=== PATIENT | female | born 1975 | race African-American/Black ===

== ENCOUNTER 2018-05-31 08:25 | Emergency (ER) | payer SELFPAY ==
--- NOTE | 2018-05-31 09:13 | ER Document Report ---
ED General - General Mode of Arrival: Ambulatory Information source: Patient TRAVEL OUTSIDE OF THE [place] IN LAST 30 DAYS: No <BENNETT MACDONALD - Last Filed: 05/31/18 09:31> <DONALD LINDER - Last Filed: 05/31/18 12:06> - General Chief Complaint: Flank Pain Stated Complaint: ABDOMINAL PAIN Time Seen by Provider: 05/31/18 09:05 Notes: Patient is a 43 year old female with chronic anemia presents to the emergency department complaining of right lower quadrant abdominal pain and right flank pain onset 2 days ago. Patient also complains of red tinged urine, urinary retention further describing it as "unable to fully empty my bladder", and urinary burning. Patient states she would often pace back and forth due to the pain being so severe. She states she has taken Aleve around 0730 this morning with no relief. Patient denies any vaginal discharge. Patient states she has chronic anemia due to having heavy periods and had a iron transfusion approximately 6 months ago. She states she last had her hemoglobin checked in December. (BENNETT MACDONALD) - Related Data Allergies/Adverse Reactions: No Known Allergies Allergy (Verified 05/31/18 08:26) Past Medical History - General Information source: Patient - Social History Smoking Status: Never Smoker Cigarette use (# per day): No Chew tobacco use (# tins/day): No Smoking Education Provided: No Family History: Reviewed & Not Pertinent Patient has suicidal ideation: No Patient has homicidal ideation: No Past Surgical History: Reports: Hx Tubal Ligation <BENNETT MACDONALD - Last Filed: 05/31/18 09:31> Review of Systems - Review of Systems Constitutional: No symptoms reported EENT: No symptoms reported Cardiovascular: No symptoms reported Respiratory: No symptoms reported Gastrointestinal: See HPI, Abdominal pain Genitourinary: See HPI, Flank pain, Hematuria, Retention Female Genitourinary: No symptoms reported Musculoskeletal: No symptoms reported Skin: No symptoms reported Hematologic/Lymphatic: No symptoms reported Neurological/Psychological: No symptoms reported -: Yes All other systems reviewed and negative <BENNETT MACDONALD - Last Filed: 05/31/18 09:31> Physical Exam <BENNETT MACDONALD - Last Filed: 05/31/18 09:31> <DONALD LINDER - Last Filed: 05/31/18 12:06> - Vital signs Vitals: Temp Pulse Resp BP Pulse Ox 98.9 F 73 16 142/86 H 100 05/31/18 08:31 05/31/18 08:31 05/31/18 08:31 05/31/18 08:31 05/31/18 08:31 - Notes Notes: GENERAL: Alert, interacts well. No acute distress. HEAD: Normocephalic, atraumatic. EYES: Pupils equal, round, and reactive to light. Extraocular movements intact. ENT: Oral mucosa moist, tongue midline. NECK: Full range of motion. Supple. Trachea midline. LUNGS: Clear to auscultation bilaterally, no wheezes, rales, or rhonchi. No respiratory distress. HEART: Regular rate and rhythm. No murmurs, gallops, or rubs. ABDOMEN: Soft, RLQ tenderness to palpation. Non-distended. Bowel sounds present in all 4 quadrants. EXTREMITIES: Moves all 4 extremities spontaneously. NEUROLOGICAL: Alert and oriented x3. Normal speech. PSYCH: Normal affect, normal mood. SKIN: Warm, dry, normal turgor. No rashes or lesions noted. BACK: Right CVA tenderness to percussion. (BENNETT MACDONALD) Course - Laboratory Result Diagrams: 05/31/18 09:25 05/31/18 09:25 <DONALD LINDER - Last Filed: 05/31/18 12:06> - Vital Signs Vital signs: Temp Pulse Resp BP Pulse Ox 98.9 F 73 16 142/86 H 100 05/31/18 08:31 05/31/18 08:31 05/31/18 08:31 05/31/18 08:31 05/31/18 08:31 - Laboratory Laboratory results interpreted by me: 05/31/18 05/31/18 09:25 09:25 Hgb 10.8 L Hct 33.2 L MCV 74 L MCH 24.1 L RDW 16.2 H Urine Protein 30 H Urine Urobilinogen 2.0 H Ur Leukocyte Esterase LARGE H Urine Ascorbic Acid 40 H Discharge <BENNETT MACDONALD - Last Filed: 05/31/18 09:31> <DONALD LINDER - Last Filed: 05/31/18 12:06> - Discharge Clinical Impression: Pyelonephritis Fibroid uterus Qualifiers: Uterine leiomyoma location: unspecified location Qualified Code(s): D25.9 - Leiomyoma of uterus, unspecified Condition: Stable Disposition: HOME, SELF-CARE Additional Instructions: Pyelonephritis Your evaluation shows evidence of pyelonephritis. This is an infection in the kidney. Typical symptoms are fever, pain in the flank, pain on urination, and frequent urination. Many cases of pyelonephritis can be treated at home. Hospital care may be necessary for patients who are very ill, or elderly or . Pyelonephritis is treated with antibiotics. Be sure to take all the medication as prescribed. Drink plenty of liquids (about three quarts per day) . You may take acetaminophen for fever. You should feel significantly improved within two days. You should have a recheck of your urine in about one week to insure that the infection is gone. Return for a re-examination if your symptoms worsen in any way -- such as high fever, shaking chills, severe weakness or dizziness, severe pain, or inability to pass your urine. Start the antibiotics as prescribed with your first dose this evening. Take Tylenol and ibuprofen or Aleve for pain. Drink plenty of fluids. Take a stool softener for a few days to prevent constipation. Follow-up with your primary care provider when you return home for recheck this week. RETURN TO THE EMERGENCY ROOM IF ANY NEW OR WORSENING SYMPTOMS. Prescriptions: Ciprofloxacin HCl [Cipro 500 mg Tablet] 500 mg PO BID #14 tablet Scribe Attestation: 05/31/18 10:23 I personally performed the services described in the documentation, reviewed and edited the documentation which was dictated to the scribe in my presence, and it accurately records my words and actions. (DONALD LINDER) Scribe Documentation - Scribe Written by Alonso:: Alonso Lipscomb, 05/31/2018 09:21 acting as scribe for :: Gilberto <BENNETT MACDONALD - Last Filed: 05/31/18 09:31>
[2018-05-31 09:51] LABS: ABSOLUTE EOSINOPHILS # (AUTO) 0.1 10^3/uL (0.0-0.6); ABSOLUTE LYMPHOCYTES (AUTO) 1.4 10^3/uL (0.5-4.7); ABSOLUTE MONOCYTES (AUTO) 0.4 10^3/uL (0.1-1.4); ABSOLUTE NEUT (AUTO) 3.7 10^3/uL (1.7-8.2); BASOPHILS % (AUTO) 0.3 % (0-2); EOSINOPHILS % (AUTO) 1.1 % (0-6); HEMATOCRIT 33.2 % (36.0-47.0); HEMOGLOBIN 10.8 g/dL (12.0-15.5); LYMPHOCYTES % (AUTO) 24.8 % (13-45); MEAN CORPUSCULAR HEMOGLOBIN 24.1 pg (27.0-33.4); MEAN CORPUSCULAR HGB CONC 32.5 g/dL (32.0-36.0); MEAN CORPUSCULAR VOLUME 74 fl (80-97); MONOCYTES % (AUTO) 6.5 % (3-13); PLATELET COUNT 440 10^3/uL (150-450); RED BLOOD COUNT 4.47 10^6/uL (3.72-5.28); RED CELL DISTRIBUTION WIDTH 16.2 % (11.5-14.0); SEGMENTED NEUTROPHILS % (AUTO) 67.3 % (42-78); TOTAL CELLS COUNTED % (AUTO) 100 %; WHITE BLOOD COUNT 5.6 10^3/uL (4.0-10.5)
[2018-05-31 10:07] LABS: ALANINE AMINOTRANSFERASE 15 U/L (9-52); ALBUMIN 4.2 g/dL (3.5-5.0); ALKALINE PHOSPHATASE 54 U/L (38-126); ANION GAP 11 (5-19); ASPARTATE AMINO TRANSFERASE 18 U/L (14-36); BILIRUBIN,DIRECT 0.2 mg/dL (0.0-0.4); BILIRUBIN,TOTAL 0.6 mg/dL (0.2-1.3); BLOOD UREA NITROGEN 12 mg/dL (7-20); CALCIUM 9.4 mg/dL (8.4-10.2); CARBON DIOXIDE 27 mmol/L (22-30); CHLORIDE 105 mmol/L (98-107); GLUCOSE 90 mg/dL (75-110); POTASSIUM 4.6 mmol/L (3.6-5.0); SODIUM 142.7 mmol/L (137-145)
[2018-05-31 10:08] LABS: APPEARANCE,URINE CLOUDY; BILIRUBIN,URINE NEGATIVE (NEGATIVE); COLOR,URINE YELLOW; GLUCOSE, URINE NEGATIVE (NEGATIVE); KETONES,URINE NEGATIVE (NEGATIVE); LEUKOCYTE ESTERASE,URINE LARGE (NEGATIVE); NITRITE,URINE NEGATIVE (NEGATIVE); PROTEIN,URINE 30 mg/dL (NEGATIVE); URINE SPECIFIC GRAVITY 1.032
[2018-05-31] MEDS ORDERED: KETOROLAC TROMETHAMINE 60 MG/2 ML SDV IM ONE (10:41)
--- NOTE | 2018-05-31 11:16 | RADIOLOGY REPORT (SQ) ---
EXAM DESCRIPTION: CT LTD RENAL STONE PROTOCOL ON COMPLETED DATE/TIME: 05/31/2018 10:55 am REASON FOR STUDY: Right flank pain, hematuria, UTI COMPARISON: None. TECHNIQUE: CT scan of the abdomen and pelvis performed without intravenous or oral contrast. Images reviewed with lung, soft tissue, and bone windows. Reconstructed coronal and sagittal MPR images revi ewed. All images stored on PACS. All CT scanners at this facility use dose modulation, iterative reconstruction, and/or weight based d osing when appropriate to reduce radiation dose to as low as reasonably achievable (ALARA). [facility]: Dose Right [facility]: CareDose [facility]: Dose Right [facility]: Teradose 4D [facility]: [employer] RADIATION DOSE: CT Rad equipment meets quality standard of care and radiation dose reduction techniq ues were employed. CTDIvol: 11.1 mGy. DLP: 608 mGy-cm.mGy. LIMITATIONS: None. FINDINGS: LOWER CHEST: No significant findings. No nodules or infiltrates. NON-CONTRASTED LIVER, SPLEEN, ADRENALS: Evaluation limited by lack of IV contrast. No identified sign ificant masses. PANCREAS: No masses. No peripancreatic inflammatory changes. GALLBLADDER: No identified stones by CT criteria. No inflammatory changes to suggest cholecystitis. RIGHT KIDNEY AND URETER: No solid masses. No significant calcification. No hydronephrosis or hydroure ter. LEFT KIDNEY AND URETER: No solid masses. No significant calcification. No hydronephrosis or hydrouret er. AORTA AND RETROPERITONEUM: No aneurysm. No retroperitoneal masses or adenopathy. BOWEL AND PERITONEAL CAVITY: Redundant stool-filled proximal to mid colon. No small bowel obstructio n. APPENDIX: Normal. PELVIS, BLADDER, AND ABDOMINAL WALL:Enlarged fibroid uterus. Bladder unremarkable. No pelvic free f luid. No abdominal wall mass or hernia. BONES: No significant findings. OTHER: No other significant finding. IMPRESSION: 1. Stool retention. 2. Fibroid uterus. 3. No acute abnormality. TECHNICAL DOCUMENTATION: JOB ID: [id number] Quality ID # [id number]: Final reports with documentation of one or more dose reduction techniques (e.g., Au tomated exposure control, adjustment of the mA and/or kV according to patient size, use of iterative reconstruction technique) 2010 [employer]- All Rights Reserved Reading location - IP/workstation name: [email or web address]
[2018-05-31] MEDS ORDERED: LIDOCAINE 1% INJ-PF (10 MG/ML) 30 ML SDV INJ ONE (12:01)
[2018-05-31] MEDS ORDERED: CEFTRIAXONE INJ 1000 MG VIAL IM ONE (12:01)
[2018-05-31] MEDS ORDERED: CIPROFLOXACIN HCL 750 MG TABLET PO ONE (12:02)
[2018-05-31] MEDS ORDERED: CIPROFLOXACIN HCL 500 MG TABLET PO ONE (12:04)
[2018-05-31 12:32] VITALS: BP 110/73
== END 2018-05-31 12:30 | disposition home or self-care (01) ==
LOC: ER 08:25
DX: N12 Tubulo-interstitial nephritis, not specified as acute or chronic (principal); D25.9 Leiomyoma of uterus, unspecified; R31.9 Hematuria, unspecified; R33.9 Retention of urine, unspecified
CPT/HCPCS: 99284; 96372; 36415; 87086; 84703; 85025; 87088; 80053; 81001; 87186; 76380; J1885; J3490; J0696

== ENCOUNTER 2019-01-22 06:46 | Emergency (ER) | payer SELFPAY ==
[2019-01-22 07:39] LABS: APPEARANCE,URINE TURBID; BILIRUBIN,URINE NEGATIVE (NEGATIVE); COLOR,URINE RED; GLUCOSE, URINE 50 mg/dL (NEGATIVE); KETONES,URINE NEGATIVE (NEGATIVE); LEUKOCYTE ESTERASE,URINE NEGATIVE (NEGATIVE); NITRITE,URINE NEGATIVE (NEGATIVE); PROTEIN,URINE >=500 mg/dL (NEGATIVE); URINE SPECIFIC GRAVITY 1.032; UROBILINOGEN,URINE NEGATIVE mg/dL (<2.0)
[2019-01-22] MEDS ORDERED: ONDANSETRON 4 MG TAB.RAPDIS PO ONE (09:00)
[2019-01-22] MEDS ORDERED: ACETAMINOPHEN 325 MG TABLET PO ONE (09:00)
[2019-01-22] MEDS ORDERED: CEFTRIAXONE 1 GM/D5W RTU 1 GM/50 ML RTUPB IV ONE (09:12)
--- NOTE | 2019-01-22 09:13 | ER Document Report ---
ED General - General Chief Complaint: Flank Pain Stated Complaint: FLANK PAIN,BACK PAIN,NAUSEA Time Seen by Provider: 01/22/19 08:41 Notes: 43-year-old female with no past medical history presents to the emergency department with chief complaint of right flank pain that started at 8 PM last night. Patient started her menstrual cycle this past Friday. She says she typically gets some back pain and cramping with her. But she said this is been severe and unremitting. It is constant and patient is clearly uncomfortable in the bed. She also had vomiting one time last night. She has nausea currently. She took Aleve last night and took Aleve again at 6 AM this morning. She denies any fevers or chills, denies any acute shortness of breath or chest pain, states that the pain radiates to her abdomen on the right upper and right lower quadrants. She denies any urinary symptoms. No other complaints TRAVEL OUTSIDE OF THE [place] IN LAST 30 DAYS: No - Related Data Allergies/Adverse Reactions: No Known Allergies Allergy (Verified 05/31/18 08:26) Past Medical History - Social History Smoking Status: Never Smoker Family History: Reviewed & Not Pertinent Patient has suicidal ideation: No Patient has homicidal ideation: No Renal/ Medical History: Denies: Hx Peritoneal Dialysis Past Surgical History: Reports: Hx Tubal Ligation Review of Systems - Review of Systems Constitutional: See HPI EENT: No symptoms reported Cardiovascular: See HPI Respiratory: See HPI Gastrointestinal: See HPI Genitourinary: See HPI Female Genitourinary: See HPI Musculoskeletal: See HPI Skin: No symptoms reported Hematologic/Lymphatic: No symptoms reported Neurological/Psychological: No symptoms reported Physical Exam - Vital signs Vitals: Temp Pulse Resp BP Pulse Ox 98.1 F 68 16 103/85 99 01/22/19 06:51 01/22/19 06:51 01/22/19 06:51 01/22/19 06:51 01/22/19 06:51 - Notes Notes: PHYSICAL EXAMINATION: Reviewed vital signs and charting by RN GENERAL: Alert, interacts well. No acute distress. HEAD: Normocephalic, atraumatic. EYES: Pupils equal and round. Extraocular movements intact. ENT: Oral mucosa moist, tongue midline. NECK: Full range of motion. Trachea midline. LUNGS: Clear to auscultation bilaterally, no wheezes, rales, or rhonchi. No respiratory distress. HEART: Regular rate and rhythm. No murmur ABDOMEN: soft, acute tenderness to palpation right lower and right upper quadrants. No distention. Bowel sounds present BACK: R CVAT EXTREMITIES: Moves all 4 extremities spontaneously. No edema, No cyanosis. PSYCH: Normal affect, normal mood. SKIN: Warm, dry, normal turgor. No rashes or lesions noted. Course - Re-evaluation Re-evalutation: 01/22/19 09:11 Patient does not have a history of kidney stones but has significant urinary tract infection. After discussing with attending physician plan is to go ahead and do a CT abdomen/pelvis with out to ensure that she does not have a kidney stone as to not miss an infected, obstructed stone. Patient took Aleve this morning so I cannot give her Toradol at this time. Rocephin 1 g IV ordered. Pending the results of the CT will move forward with the work-up. 01/22/19 09:13 01/22/19 09:48 CT abdomen/pelvis without contrast completed shows no evidence of nephrolithiasis concerning for an obstructed stone. Her presentation is consistent with pyelonephritis. Plan is for her to complete the Rocephin here in the emergency department and I will give her an outpatient prescription for Keflex. I will give her a short course of pain medication as well. Vital signs are within normal limits, patient is stable for discharge. 01/22/19 09:49 - Vital Signs Vital signs: Temp Pulse Resp BP Pulse Ox 98.1 F 68 16 103/85 99 01/22/19 06:51 01/22/19 06:51 01/22/19 06:51 01/22/19 06:51 01/22/19 06:51 - Laboratory Laboratory results interpreted by me: 01/22/19 07:05 Urine Protein >=500 H Urine Glucose (UA) 50 H Urine Blood LARGE H Discharge - Discharge Clinical Impression: Pyelonephritis Condition: Good Disposition: HOME, SELF-CARE Additional Instructions: You have been diagnosed with a condition called pyelonephritis which is an infection involving your kidneys and bladder. You have been given a dose of antibiotics here in the emergency department to help begin to treat this infection. Your also being sent home on antibiotics. Please start taking these later on today when you fill the prescription. Complete the course even if you feel better. Please return if you have persistent vomiting, pass out, have worsening pain, become unable to tolerate fluids, or have any other symptoms that are concerning to you. Please follow-up with your primary care physician in the next 24-48 hours. Forms: Return to Work
--- NOTE | 2019-01-22 09:27 | RADIOLOGY REPORT (SQ) ---
EXAM DESCRIPTION: CT ABD/PELVIS NO ORAL OR IV COMPLETED DATE/TIME: 01/22/2019 9:15 am REASON FOR STUDY: R flank pain COMPARISON: 05/31/2018 TECHNIQUE: CT scan of the abdomen and pelvis performed without intravenous or oral contrast. Images reviewed with lung, soft tissue, and bone windows. Reconstructed coronal and sagittal MPR images revi ewed. All images stored on PACS. All CT scanners at this facility use dose modulation, iterative reconstruction, and/or weight based d osing when appropriate to reduce radiation dose to as low as reasonably achievable (ALARA). [facility]: Dose Right [facility]: CareDose [facility]: Dose Right [facility]: Teradose 4D [facility]: [employer] RADIATION DOSE: CT Rad equipment meets quality standard of care and radiation dose reduction techniq ues were employed. CTDIvol: 13.2 mGy. DLP: 732 mGy-cm.mGy. LIMITATIONS: None. FINDINGS: LOWER CHEST: No significant findings. No nodules or infiltrates. NON-CONTRASTED LIVER, SPLEEN, ADRENALS: Evaluation limited by lack of IV contrast. No identified sign ificant masses. PANCREAS: No masses. No peripancreatic inflammatory changes. GALLBLADDER: No identified stones by CT criteria. No inflammatory changes to suggest cholecystitis. RIGHT KIDNEY AND URETER: No suspicious masses. Assessment limited by lack of IV contrast. No signif icant calcifications. No hydronephrosis or hydroureter. LEFT KIDNEY AND URETER: No suspicious masses. Assessment limited by lack of IV contrast. No signifi cant calcifications. No hydronephrosis or hydroureter. AORTA AND RETROPERITONEUM: No aneurysm. No retroperitoneal masses or adenopathy. BOWEL AND PERITONEAL CAVITY: No obvious masses or inflammatory changes. No free fluid. Large burden of stool in the colon. APPENDIX: Normal. PELVIS, BLADDER, AND ABDOMINAL WALL:Very bulky fibroid uterus as seen on prior examination. Multiple calcifications within the pelvis, none of which are obviously within the ureters and are likely phle boliths, and unchanged in configuration compared to prior examination. BONES: No significant findings. OTHER: No other significant finding. IMPRESSION: 1. Very bulky fibroid uterus as seen on prior examination. Multiple calcifications with in the pelvis, none of which are obviously within the ureters and are likely phleboliths, and unchang ed in configuration compared to prior examination. No evidence of renal calculus or hydronephrosis. 2. Large burden of stool in the colon. COMMENT: Quality ID # 436: Final reports with documentation of one or more dose reduction techniques (e.g., Automated exposure control, adjustment of the mA and/or kV according to patient size, use of iterative reconstruction technique) TECHNICAL DOCUMENTATION: JOB ID: [id number] [email or web address]- All Rights Reserved Reading location - IP/workstation name: [email or web address]
[2019-01-22] MEDS ORDERED: ONDANSETRON ODT 4 MG TAB (6 TAB/ER DISP) PO PRN (09:51)
[2019-01-22] MEDS ORDERED: HYDROCODONE/ACETAMINOPHEN 5-325 MG (6 TAB/ER DISP) PO PRN (09:56)
[2019-01-22 10:08] VITALS: BP 118/69
== END 2019-01-22 10:08 | disposition home or self-care (01) ==
LOC: ER 06:46
DX: N12 Tubulo-interstitial nephritis, not specified as acute or chronic (principal); R11.2 Nausea with vomiting, unspecified
CPT/HCPCS: 81001; 74176; S0119; J0696

== ENCOUNTER 2020-04-20 08:07 | Outpatient (CLI) | payer BC ==
[2020-04-20] MEDS ORDERED: FERRIC CARBOXYMALTOSE 750 MG in NORMAL SALINE 250 ML IV PRN (08:14)
[2020-04-20 08:43] VITALS: BP 127/71
== END 2020-04-20 09:30 | disposition home or self-care (01) ==
LOC: II 08:07 → 5TH 08:08 → II 09:30
PROVIDERS: ATTEND Internal Medicine
DX: D50.9 Iron deficiency anemia, unspecified (principal)
CPT/HCPCS: 96374; J7050; J1439

== ENCOUNTER 2020-04-27 08:51 | Outpatient (CLI) | payer BC, OTHER ==
[~2020-04-27 08:51] MED LIST: FERRIC CARBOXYMALTOSE 750 MG in NORMAL SALINE 250 ML IV PRN
[2020-04-27 09:15] VITALS: BP 138/79
== END 2020-04-27 09:30 | disposition home or self-care (01) ==
LOC: II 08:51 → 5TH 09:14 → II 09:30
PROVIDERS: ATTEND Internal Medicine
DX: D50.9 Iron deficiency anemia, unspecified (principal)
CPT/HCPCS: 96374; J7050; J1439

== ENCOUNTER 2020-07-25 23:54 | Emergency (ER) | payer BC, OTHER ==
--- NOTE | 2020-07-26 01:08 | ER Document Report ---
ED Medical Screen (RME) - General Chief Complaint: Vaginal Bleeding Stated Complaint: VAGINAL BLEEDING, SHORTNESS OF BREATH Time Seen by Provider: 07/26/20 01:00 Primary Care Provider: TE PLASENCIA MD [Primary Care Provider] - Follow up as needed Mode of Arrival: Ambulatory Information source: Patient TRAVEL OUTSIDE OF THE [place] IN LAST 30 DAYS: No - HPI Patient complains to provider of: Shortness of breath, vaginal bleeding Notes: 07/26/20 01:07 Patient here with complaints of feeling short of breath, malaise, leg heaviness and weakness. The patient states she been having a lot of vaginal bleeding since she got the Depo shot back in April. She states that she has a prior history of iron deficiency anemia and has required iron infusions twice in the past. She been seeing her [employer]. Now she is feeling short of breath. She denies any chest pain. Exam: No distress, nontoxic appearing. Lungs clear and equal throughout. Heart sounds normal. An initial examination was made on the patient as part of the triage process, and it was determined a more comprehensive evaluation was necessary. Initial orders were placed and patient was transferred to another provider in the ED who assumed care and finished evaluation and plan. - Related Data Allergies/Adverse Reactions: No Known Allergies Allergy (Verified 07/26/20 01:02) Past Medical History Renal/ Medical History: Denies: Hx Peritoneal Dialysis Past Surgical History: Reports: Hx Tubal Ligation Physical Exam - Vital signs Vitals: Temp Pulse Resp BP Pulse Ox 99.4 F 78 18 157/84 H 100 07/26/20 00:00 07/26/20 00:00 07/26/20 00:00 07/26/20 00:00 07/26/20 00:00 Course - Vital Signs Vital signs: Temp Pulse Resp BP Pulse Ox 99.4 F 78 18 157/84 H 100 07/26/20 00:00 07/26/20 00:00 07/26/20 00:00 07/26/20 00:00 07/26/20 00:00 Doctor's Discharge - Discharge Referrals: TE PLASENCIA MD [Primary Care Provider] - Follow up as needed
[2020-07-26 01:46] LABS: ABSOLUTE EOSINOPHILS # (AUTO) 0.1 10^3/uL (0.0-0.6); ABSOLUTE LYMPHOCYTES (AUTO) 1.7 10^3/uL (0.5-4.7); ABSOLUTE MONOCYTES (AUTO) 0.5 10^3/uL (0.1-1.4); ABSOLUTE NEUT (AUTO) 5.1 10^3/uL (1.7-8.2); BASOPHILS % (AUTO) 0.4 % (0-2); EOSINOPHILS % (AUTO) 1.6 % (0-6); HEMATOCRIT 35.6 % (36.0-47.0); HEMOGLOBIN 11.8 g/dL (12.0-15.5); LYMPHOCYTES % (AUTO) 22.6 % (13-45); MEAN CORPUSCULAR HEMOGLOBIN 27.6 pg (27.0-33.4); MEAN CORPUSCULAR HGB CONC 33.1 g/dL (32.0-36.0); MEAN CORPUSCULAR VOLUME 83 fl (80-97); MONOCYTES % (AUTO) 6.6 % (3-13); PLATELET COUNT 351 10^3/uL (150-450); RED BLOOD COUNT 4.27 10^6/uL (3.72-5.28); SEGMENTED NEUTROPHILS % (AUTO) 68.8 % (42-78); TOTAL CELLS COUNTED % (AUTO) 100 %; WHITE BLOOD COUNT 7.4 10^3/uL (4.0-10.5)
[2020-07-26 01:50] LABS: APPEARANCE,URINE SLIGHTLY-CLOUDY; BILIRUBIN,URINE NEGATIVE (NEGATIVE); COLOR,URINE YELLOW; GLUCOSE, URINE NEGATIVE (NEGATIVE); KETONES,URINE NEGATIVE (NEGATIVE); LEUKOCYTE ESTERASE,URINE TRACE (NEGATIVE); NITRITE,URINE NEGATIVE (NEGATIVE); PROTEIN,URINE 30 mg/dL (NEGATIVE); URINE SPECIFIC GRAVITY 1.029; UROBILINOGEN,URINE NEGATIVE mg/dL (<2.0)
[2020-07-26 01:56] LABS: INTERNATIONAL RATION (INR) 0.95; PROTHROMBIN TIME 12.9 SEC (11.4-15.4)
[2020-07-26 01:57] LABS: PARTIAL THROMBOPLASTIN TIME 32.4 SEC (23.5-35.8)
[2020-07-26 02:09] LABS: ALBUMIN 4.1 g/dL (3.5-5.0); ALKALINE PHOSPHATASE 54 U/L (38-126); ASPARTATE AMINO TRANSFERASE 23 U/L (14-36); BILIRUBIN,DIRECT 0.2 mg/dL (0.0-0.4); BILIRUBIN,TOTAL 0.4 mg/dL (0.2-1.3); BLOOD UREA NITROGEN 15 mg/dL (7-20); CALCIUM 9.9 mg/dL (8.4-10.2); CARBON DIOXIDE 31 mmol/L (22-30); CHLORIDE 106 mmol/L (98-107); GLUCOSE 103 mg/dL (75-110); POTASSIUM 4.6 mmol/L (3.6-5.0)
[2020-07-26 02:27] LABS: ANION GAP 3 (5-19)
--- NOTE | 2020-07-26 03:07 | RADIOLOGY REPORT (SQ) ---
EXAM DESCRIPTION: XR CHEST 2 VIEWS COMPLETED DATE/TME: 07/26/2020 02:08 CLINICAL HISTORY: 45 years, Female, SOB COMPARISON: None. NUMBER OF VIEWS: 2 TECHNIQUE: 2 views of the chest were obtained LIMITATIONS: None. FINDINGS: The heart size is normal and the lungs appear clear. There is no evidence of pleural effusion or pneumothorax. No acute bony abnormality is seen. IMPRESSION: No acute abnormality as above. copyright 2010 [employer]- All Rights Reserved
[2020-07-26] MEDS ORDERED: KETOROLAC TROMETHAMINE INJ/PF 30 MG/1 ML SDV IV ONE (10:20)
[2020-07-26] MEDS ORDERED: ONDANSETRON HCL INJ/PF 4 MG/2 ML SDV IV ONE (10:21)
--- NOTE | 2020-07-26 10:29 | ER Document Report ---
Entered by DIONE HAYDEN SCRIBE 07/26/20 0957 Acting as scribe for:KIRBY VALDEZ IV, MD ED GI/ - General Chief Complaint: Vaginal Bleeding Stated Complaint: VAGINAL BLEEDING, SHORTNESS OF BREATH Time Seen by Provider: 07/26/20 01:00 Primary Care Provider: TE LPASENCIA MD [Primary Care Provider] - Follow up as needed Mode of Arrival: Ambulatory Information source: Patient Notes: This 45 year old female patient with a history of iron deficiency anemia and fibroid uterus presents to the ED today with complaints of heavy vaginal bleeding since 03/2020. Patient states that she received the Depo shot and was started on estrogen therapy in 02/2020. She states that she also received x2 iron transfusions in mid-April of last year. She states that she felt short of breath, malaise, weak, and like her legs were heavy last night, so she decided to come to the ED for further evaluation. She also reports right flank pain that radiates to her RLQ, nausea, and low grade fevers that started x2-3 days ago. She notes associated pain with urination. Denies vomiting or chills. Dr. Plasencia is her PCP. TRAVEL OUTSIDE OF THE [place] IN LAST 30 DAYS: No - Related Data Allergies/Adverse Reactions: No Known Allergies Allergy (Verified 07/26/20 01:02) Home Medications: HORMONES Past Medical History - General Information source: Patient, [facility] - Social History Smoking Status: Never Smoker Cigarette use (# per day): No Chew tobacco use (# tins/day): No Smoking Education Provided: No Frequency of alcohol use: None Drug Abuse: None Family History: Reviewed & Not Pertinent Past Surgical History: Reports: Hx Tubal Ligation Review of Systems - Review of Systems Constitutional: See HPI, Fever, Malaise, Weakness. denies: Chills EENT: No symptoms reported Cardiovascular: No symptoms reported Respiratory: See HPI, Short of breath Gastrointestinal: See HPI, Abdominal pain, Nausea. denies: Vomiting Genitourinary: See HPI, Dysuria, Flank pain Female Genitourinary: See HPI, Vaginal bleeding Musculoskeletal: No symptoms reported Skin: No symptoms reported Hematologic/Lymphatic: No symptoms reported Neurological/Psychological: No symptoms reported -: Yes All other systems reviewed and negative Physical Exam - Vital signs Vitals: Temp Pulse Resp BP Pulse Ox 99.4 F 78 18 157/84 H 100 07/26/20 00:00 07/26/20 00:00 07/26/20 00:00 07/26/20 00:00 07/26/20 00:00 - General General appearance: Alert In distress: None - HEENT Head: Normocephalic, Atraumatic Eyes: Normal Extraocular movements intact: Yes Pupils: PERRL Neck: Normal, Supple - Respiratory Respiratory status: No respiratory distress Chest status: Nontender Breath sounds: Normal Chest palpation: Normal - Cardiovascular Rhythm: Regular Heart sounds: Normal auscultation Murmur: No Friction rub: No Gallop: None auscultated - Abdominal Inspection: Normal Distension: No distension Bowel sounds: Normal Tenderness: Tender - Tenderness to palpation of the RLQ, Other - Abdomen soft Organomegaly: No organomegaly - Back Back: Normal, Nontender. No: CVA tenderness - Extremities General upper extremity: Normal inspection General lower extremity: Normal inspection. No: Edema - Neurological Neuro grossly intact: Yes Orientation: AAOx4 [place] Coma Scale Eye Opening: Spontaneous [place] Coma Scale Verbal: Oriented Donovan Coma Scale Motor: Obeys Commands [place] Coma Scale Total: 15 - Psychological Associated symptoms: Tearful - Skin Skin Temperature: Warm Skin Moisture: Dry Skin Color: Normal Course - Re-evaluation Re-evalutation: 07/26/20 12:03 Patient states she is getting some relief of pain with the IV Toradol. Results of ED MSE discussed with patient. All questions were answered prior to discharge. Emergency signs and symptoms, reasons to return to the emergency department discussed with patient. Patient instructed to follow-up with her primary doctor, Dr. Plasencia, about her iron labs. - Vital Signs Vital signs: Temp Pulse Resp BP Pulse Ox 98.4 F 70 16 156/77 H 100 07/26/20 10:01 07/26/20 10:01 07/26/20 10:01 07/26/20 10:01 07/26/20 10:01 - Laboratory Results Result Diagrams: 07/26/20 01:24 07/26/20 01:24 Laboratory Results Interpreted: 07/26/20 07/26/20 07/26/20 01:24 01:24 01:24 Hgb 11.8 L Hct 35.6 L RDW 15.0 H Carbon Dioxide 31 H Anion Gap 3 L Urine Protein 30 H Urine Blood LARGE H Ur Leukocyte Esterase TRACE H Critical Laboratory Results Reviewed: No Critical Results Attending or Supervising Physician who Reviewed Labs: KIRBY VALDEZ IV - Radiology Results Radiology Results Interpreted: 07/26/20 11:48 Chest X-Ray 07/26/20 01:06 IMPRESSION: No acute abnormality as above. copyright 2010 [employer]- All Rights Reserved Abdomen/Pelvis CT 07/26/20 10:21 IMPRESSION: Enlarged fibroid uterus. Ovaries not well seen. Normal appendix No right-sided urinary stones or hydronephrosis/hydroureter Critical Radiology Results Reviewed: No Critical Results Attending or Supervising Physician who Reviewed Radiology: KIRBY VALDEZ IV - fibroid uterus as seen before, appendix nl - EKG Interpretation by Me Additional EKG results interpreted by me: 07/26/20 12:06 EKG obtained on 07/26/2020 at 013 4 hours was interpreted by this MD. Findings: Normal sinus rhythm, rate 71, normal axis, NC interval interval appears to be within normal limits, P waves proceed QRS complexes, QRS complexes appear narrow, QTC is 439, there are no obvious patterns of ST segment elevation, depression or reciprocal changes seen to suggest acute myocardial ischemia or infarction. Impression: Normal sinus rhythm with nonspecific ST segments. Discharge - Discharge Clinical Impression: Dysfunctional uterine bleeding Fibroid uterus Qualifiers: Uterine leiomyoma location: unspecified location Qualified Code(s): D25.9 - Leiomyoma of uterus, unspecified Fatigue Qualifiers: Fatigue type: unspecified Qualified Code(s): R53.83 - Other fatigue Condition: Stable Disposition: HOME, SELF-CARE Additional Instructions: Return to the Emergency Department without delay if any worse. HOME CARE INSTRUCTIONS & INFORMATION: Thank you for choosing us for your medical needs. We hope you're satisfied with the care you received. After you leave, you must properly care for your problem and, at the same time, observe its progress. Any condition can change. Some illnesses can change rapidly over hours or days. If your condition worsens, return to the Emergency Department or see your physician promptly. ABOUT YOUR X-RAYS AND EKG'S: If you had an EKG or X-rays taken, they have been read by the Emergency Physician. The X-rays and EKG's will also be read by a Radiologist or Pediatric Dietician within 24 hours. If discrepancies are noted, you will be notified by telephone. Please be certain the ED has a correct telephone number & address where you can be reached. Also, realize that some fractures or abnormalities do not show up on initial X-rays. If your symptoms continue, see your physician. ABOUT YOUR LABORATORY TEST: If you had laboratory tests, the results have been reviewed by the Emergency Physician. Some test results (for example cultures) may not be available for several days. You will be contacted if any test result shows you need additional treatment. Please be certain the ED has a correct telephone number and address where you can be reached. ABOUT YOUR MEDICATIONS: You will receive instructions on how to take your medicine on the prescription label you receive. Additional information may be provided by the Pharmacy. If you have questions afterwards, call the ED for clarification or further instructions. Some prescribed medications may cause drowsiness. Do not perform tasks such as driving a car or operating machinery without consulting your Pharmacist. If you feel you need a refill of pain medication, your condition will need re-evaluation. Please do not call for a re fill of any medication. ABOUT YOUR SIGNATURE: Signature of this document acknowledges to followin. Understanding that you received emergency treatment and that you may be released before al medical problems are known or treated. Please be certain the ED has a correct phone number & address where you can be reached. 2. Acknowledgement that you will arrange for follow-up care as recommended. 3. Authorization for the Emergency Physician to provide information to your follow-up Physician in order to maximize your care. AT ANY TIME, IF YOUR SYMPTOMS CHANGE SIGNIFICANTLY OR WORSEN OR YOU DEVELOP NEW SYMPTOMS, RETURN TO THE EMERGENCY DEPARTMENT IMMEDIATELY FOR RE-EVALUATION. OUR GOAL IS TO PROVIDE EXCELLENT MEDICAL CARE! WE HOPE THAT WE HAVE MET YOUR EXPECTATIONS DURING YOUR EMERGENCY DEPARTMENT VISIT AND THAT YOU FEEL YOU HAVE RECEIVED EXCELLENT CARE! Prescriptions: Medroxyprogesterone Acet [Provera 10 Mg Tablet] 10 mg PO BID 5 Days #10 tablet Referrals: TE PLASENCIA MD [Primary Care Provider] - Follow up tomorrow I personally performed the services described in the documentation, reviewed and edited the documentation which was dictated to the scribe in my presence, and it accurately records my words and actions.
--- NOTE | 2020-07-26 10:59 | RADIOLOGY REPORT (SQ) ---
EXAM DESCRIPTION: CT ABD/PELVIS NO ORAL OR IV IMAGES COMPLETED DATE/TIME: 07/26/2020 10:40 am REASON FOR STUDY: right lower quadrant pain x 3 days COMPARISON: CT abdomen and pelvis 02/01/2019, 05/31/2018 of TECHNIQUE: CT scan of the abdomen and pelvis performed without intravenous or oral contrast. Images reviewed with lung, soft tissue, and bone windows. Reconstructed coronal and sagittal MPR images revi ewed. All images stored on PACS. All CT scanners at this facility use dose modulation, iterative reconstruction, and/or weight based d osing when appropriate to reduce radiation dose to as low as reasonably achievable (ALARA). [facility]: Dose Right [facility]: CareDose [facility]: Dose Right [facility]: Teradose 4D [facility]: Smart [employer] RADIATION DOSE: CT Rad equipment meets quality standard of care and radiation dose reduction techniq ues were employed. CTDIvol: 11.2 mGy. DLP: 619 mGy-cm.mGy. LIMITATIONS: None. FINDINGS: LOWER CHEST: No significant findings. No nodules or infiltrates. NON-CONTRASTED LIVER, SPLEEN, ADRENALS: Evaluation limited by lack of IV contrast. No identified sign ificant masses. PANCREAS: No masses. No peripancreatic inflammatory changes. GALLBLADDER: No identified stones by CT criteria. No inflammatory changes to suggest cholecystitis. RIGHT KIDNEY AND URETER: No suspicious masses. Assessment limited by lack of IV contrast. No signif icant calcifications. No hydronephrosis or hydroureter. LEFT KIDNEY AND URETER: No suspicious masses. Assessment limited by lack of IV contrast. No signifi cant calcifications. No hydronephrosis or hydroureter. AORTA AND RETROPERITONEUM: No aneurysm. No retroperitoneal masses or adenopathy. BOWEL AND PERITONEAL CAVITY: No obvious masses or inflammatory changes. No free fluid. APPENDIX: Normal. PELVIS, BLADDER, AND ABDOMINAL WALL:No abnormal masses. No free fluid. Bladder normal. Enlarged fibr oid uterus, 16 x 13 x 10 cm, similar compared to prior study. 8 cm fibroid along the anterior lower uterine segment. Ovaries not well seen. BONES: No significant findings. OTHER: No other significant finding. IMPRESSION: Enlarged fibroid uterus. Ovaries not well seen. Normal appendix No right-sided urinary stones or hydronephrosis/hydroureter COMMENT: Quality ID # [id number]: Final reports with documentation of one or more dose reduction techniques (e.g., Automated exposure control, adjustment of the mA and/or kV according to patient size, use of iterative reconstruction technique) TECHNICAL DOCUMENTATION: JOB ID: [id number] 2010 [employer]- All Rights Reserved Reading location - IP/workstation name: [email or web address]
[2020-07-26 11:38] LABS: ABSOLUTE RETICS # 0.082 10^6/uL (0.028-0.122)
[2020-07-26 11:45] LABS: IRON(TIBC) 47.4 ug/dL (37-170)
[2020-07-26 12:40] VITALS: BP 140/68
--- NOTE | 2020-07-26 23:46 | EKG REPORT ---
SEVERITY:- BORDERLINE ECG - SINUS RHYTHM PROBABLE LEFT ATRIAL ABNORMALITY : Confirmed by: Rachael Sanchez 26-Jul-2020 23:46:07
== END 2020-07-26 13:05 | disposition home or self-care (01) ==
LOC: ER 23:54
DX: N93.8 Other specified abnormal uterine and vaginal bleeding (principal); D25.9 Leiomyoma of uterus, unspecified; R53.83 Other fatigue; R06.02 Shortness of breath; R11.0 Nausea; R53.81 Other malaise
CPT/HCPCS: 93005; 99285; 96374; 96375; 36415; 82607; 82728; 82746; 83540; 83550; 85025; 85610; 85730; 85045; 80053; 81001; 84484; 71046; 74176; 93010; J1885; J2405